=== PATIENT | female | born 1990 | race African-American/Black ===

== ENCOUNTER 2019-03-28 17:40 | Inpatient (IN) | payer OTHER ==
[2019-03-28 19:03] VITALS: BMI 29.1
[2019-03-28 19:41] LABS: BASO % 0.1 % (0-2.0); EOS % 0.8 % (0-4.5); HEMATOCRIT 37.6 % (32.4-45.2); HEMOGLOBIN 12.7 GM/dL (10.7-15.3); LYMPH % 18.9 % (8-40); MCH 32.1 pg (25.7-33.7); MCHC 33.7 g/dl (32.0-36.0); MEAN CELL VOLUME 95.3 fl (80-96); MEAN PLT VOLUME 11.4 fl (7.5-11.1); MONO % 10.8 % (3.8-10.2); NEUT % 69.4 % (42.8-82.8); RBC 3.95 M/mm3 (3.60-5.2); RDW 13.9 % (11.6-15.6); WHITE BLOOD COUNT 9.6 K/mm3 (4.0-10.0)
[2019-03-28 20:00] LABS: INR 0.9 (0.83-1.09); PROTHROMBIN TIME (PATIENT) 10.6 SEC (9.7-13.0)
[2019-03-28 20:03] LABS: ACTIVATED PTT 28.1 SECONDS (25.2-36.5)
[2019-03-28 20:04] LABS: BLOOD UREA NITROGEN 11.8 mg/dL (7-18); CALCIUM 9.2 mg/dL (8.5-10.1); CREATININE 0.8 mg/dL (0.55-1.3); POTASSIUM 3.9 mmol/L (3.5-5.1)
[2019-03-28 20:50] LABS: PLATELET COUNT 181 K/MM3 (134-434)
[2019-03-28 20:51] LABS: PLATELET ESTIMATE ADEQUATE
--- NOTE | 2019-03-28 22:04 | HP ---
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: Alzheimer's, CVA, Dementia, Migraine, Multiple Sclerosis, Peripheral Neuropathy, Parkinson's, Seizure, Syncope, TIA, Vertigo, Other Cardiovascular: No: AFIB, Aneurysm, Aortic Insufficiency, Aortic Stenosis, CAD, CHF, Deep Vein Thrombosis, HTN, Hyperlipdemia, NV, Mitral Insufficiency, Mitral Stenosis, Murmur, Pulmonary Hypertension, Other Pulmonary: No: Asthma, Bronchitis, Cancer, COPD, O2 Dependent, Pneumonia, Previously Intubated, Pulmonary Embolus, Pulmonary Fibrosis, Sleep Apnea, Other Gastrointestinal: No: Ascites, Cancer, Constipation, Crohn's Disease, Diverticulitis, Diverticulosis, Esophageal Varices, Gastritis, GERD, GI Bleed, Hemorrhoids, Hiatal Hernia, Inflamatory Bowel Disease, Irritable Bowel Disease, Pancreatitis, Peptic Ulcer Disease, Ulcerative Colitis, Other Hepatobiliary: No: Cirrhosis, Cholelithiasis, Cholecystitis, Choledocholithiasis , Hepatitis A, Hepatitis B, Hepatitis C, Other Renal/: No: Renal Failure, Renal Inusuff, BPH, Cancer, Hematuria, Hemodialysis , Neurogenic Bladder, Renal Calculi, UTI, Other Reproductive: No: Ectopic , Endometriosis, Fibroids, PID, Polycystic Ovary Syndrome, Postmenopausal, Other ...: 2 ...Para: 0 ...Term: 0 ...Induced : 1 ...LMP: 07/02/18 ... Weeks Gestation by Dates: 38.3 ...EDC by Dates: 04/08/19 ...EDC by Sono: 04/09/19 Heme/Onc: No: Anemia, B12 Deficiency, Bleeding Disorder, Cancer, Current Chemotherapy, Current Radiation Therapy, Hemochromatosis, Hypercoaguable State, Myeloproliferative Synd, Sickle Cell Disease, Sickle Cell Trait, Thrombocytopenia, Other Infectious Disease: No: AIDS, C-Diff, Herpes Zoster, HIV, MRSA, STD's, Tuberculosis, VREF, Other Psych: No: Addictions, Anxiety, Bipolar, Depression, Panic, Psychosis, Schizophrenia, Other Musculoskeletal: No: Bursitis, Chronic low back pain, Hemiparesis, Hemiplegia, Osteoarthritis, Paraplegia, Other Rheumatology: No: Fibromyalgia, Gout, Lupus, Rheumatoid Arthritis, Sarcoidosis, Vasculitis, Other ENT: No: Allergic Rhinitis, Sinusitis, Other Endocrine: No: Yordan's Disease, Alice's Disease, Diabetes Insipidus, Diabetes Mellitus, Hyperparathyroidism, Hyperthyroidism, Hypothyroidism, Osteopenia, SIADH, Other Dermatology: No: Basal Cell, Cellulitis, Eczema, Melanoma, Psoriasis, Squamous Cell, Other - Past Surgical History Past Surgical History: Yes: None Hx Myomectomy: No Hx Transabdominal Cerclage: No - Advance Directives Advance Directives: Yes: Living Will - Smoking History Smoking history: Never smoked Have you smoked in the past 12 months: No - Alcohol/Substance Use Hx Alcohol Use: No History of Substance Use: reports: None - Social History Usual Living Arrangement: Yes: With Parent, With Significant Other ADL: Independent History of Recent Travel: No Home Medications - Allergies Allergies/Adverse Reactions: Allergies Allergy/AdvReac Type Severity Reaction Status Date / Time No Known Allergies Allergy Verified 03/28/19 18:23 - Home Medications Home Medications: Ambulatory Orders Vitamin Tablet 1 tablet PO DAILY MDD 1 03/28/19 Family Disease History - Family Disease History Family History: Denies Review of Systems - Review of Systems Constitutional: reports: No Symptoms Eyes: reports: No Symptoms HENT: reports: No Symptoms Neck: reports: No Symptoms Cardiovascular: reports: No Symptoms Respiratory: reports: No Symptoms Gastrointestinal: reports: No Symptoms Genitourinary: reports: No Symptoms Breasts: reports: No Symptoms Reported Musculoskeletal: reports: No Symptoms Integumentary: reports: No Symptoms Neurological: reports: No Symptoms Endocrine: reports: No Symptoms Hematology/Lymphatic: reports: No Symptoms Psychiatric: reports: No Symptoms Physical Exam - Maternity Vital Signs: Vital Signs Temperature 97.9 F 03/28/19 19:00 Pulse Rate 99 H 03/28/19 19:00 Respiratory Rate 03/28/19 20:00 Blood Pressure 108/57 L 03/28/19 20:00 O2 Sat by Pulse Oximetry (%) Constitutional: Yes: Well Nourished, No Distress, Calm Eyes: Yes: WNL, Conjunctiva Clear, EOM Intact HENT: Yes: WNL, Atraumatic, Normocephalic Neck: Yes: WNL, Supple, Trachea Midline Cardiovascular: Yes: WNL, Regular Rate and Rhythm Lungs: Clear to auscultation Breast(s): Yes: WNL - Abdominal Exam/OB Fundal Height: 38 Number of Fetuses: Single Presentation: Vertex Contractions: Yes Regularity: Regular Intensity: Moderate Monitor Mode: External Heart Rate Location: [facility] - Labs Lab Results: CBC, BMP 03/28/19 19:10 03/28/19 19:10 Hemorrhage Risk Assessment - Risk Factors Risk Score: 0 Risk Level: Low Risk Problem List - Problems (1) Normal vaginal delivery Code(s): O80 - ENCOUNTER FOR FULL-TERM UNCOMPLICATED DELIVERY Assessment/Plan anticipate
[2019-03-28] MEDS ORDERED: BUTORPHANOL TARTRATE 1 MG/ML VIAL IVPB ONE (23:51)
[2019-03-28] MEDS ORDERED: PROMETHAZINE HCL 25 MG/1 ML VIAL IVPB ONE (23:51)
--- NOTE | 2019-03-28 23:53 | PN ---
Progress Note (short form) - Note Progress Note: cervix 4 to 5 cm, -1, 90%, uc q 3 to 5 min, requesting stadol for pain Problem List - Problems (1) Normal vaginal delivery Code(s): O80 - ENCOUNTER FOR FULL-TERM UNCOMPLICATED DELIVERY
[2019-03-29] MEDS: ELECTROLYTE-148 SOLN 1,000 ML IV SCH ×3 (00:15→05:00)
[2019-03-29] MEDS ORDERED: BUTORPHANOL TARTRATE 2 MG/ML VIAL ONE (00:22)
[2019-03-29] MEDS ORDERED: FENTANYL/BUPIVACAINE/NS/PF - PCEA - 50 ML DISP.SYRIN EP ONE (02:50)
[2019-03-29] MEDS ORDERED: NALOXONE HCL 0.4 MG/ML VIAL IVPUSH PRN (03:03)
[2019-03-29] MEDS ORDERED: LIDO 2%/EPI 1:200000 PRESRVFRE (20 ML SDVIAL) ONE (03:05)
[2019-03-29] MEDS ORDERED: BUPIVACAINE HCL/PF 0.25% (2.5MG/ML) 10 ML VIAL ONE (03:05)
[2019-03-29] MEDS ORDERED: FENTANYL/BUPIVACAINE/NS/PF - PCEA - 50 ML DISP.SYRIN EP SCH ×2 (03:15→05:45)
[2019-03-29] MEDS ORDERED: OXYTOCIN 20 UNITS in 0.9% NS 20 UNIT/1,000 ML INFUS.BAG IV ONE ×2 (05:06→09:24)
[2019-03-29] MEDS ORDERED: LIDOCAINE HCL 1% PRESERVATIVE FREE - 30ML VIAL ONE (05:06)
--- NOTE | 2019-03-29 07:19 | PN ---
Progress Note (short form) - Note Progress Note: comfort @ 430 am, cervix 7 cm, -1, 100% , uc q 5 m , continue laboring Problem List - Problems (1) Normal vaginal delivery Code(s): O80 - ENCOUNTER FOR FULL-TERM UNCOMPLICATED DELIVERY
--- NOTE | 2019-03-29 07:20 | PN ---
Progress Note (short form) - Note Progress Note: fully dilated, 0 station, uc q 5 m off epidural , and start pushing Problem List - Problems (1) Normal vaginal delivery Code(s): O80 - ENCOUNTER FOR FULL-TERM UNCOMPLICATED DELIVERY
[2019-03-29] MEDS ORDERED: oxyCODONE HCL 5 MG TABLET PO PRN ×2 (07:21→08:09)
[2019-03-29] MEDS ORDERED: BENZOCAINE 28 GM HEMORRHOIDAL OINTMENT TP PRN (07:21)
[2019-03-29] MEDS ORDERED: WITCH HAZEL 50% (TUCKS) 40 PAD/JAR PAD TP PRN (07:21)
[2019-03-29] MEDS ORDERED: BENZOCAINE 20% 57 GM BOTTLE TP PRN (07:21)
[2019-03-29] MEDS ORDERED: METHYLERGONOVINE MALEATE 0.2 MG/1 ML AMP IM PRN (07:21)
[2019-03-29] MEDS ORDERED: BISACODYL 10 MG SUPP.RECT RC PRN (07:21)
[2019-03-29] MEDS ORDERED: ACETAMINOPHEN 325 MG TABLET (FP) PO PRN ×2 (07:21→08:09)
[2019-03-29] MEDS ORDERED: IBUPROFEN 600 MG TABLET (FP) PO PRN ×2 (07:21→08:09)
[2019-03-29] MEDS ORDERED: OXYTOCIN 20 UNITS in 0.9% NS 20 UNIT/1,000 ML INFUS.BAG IV SCH (07:30)
--- NOTE | 2019-03-29 08:12 | PN ---
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
[2019-03-29] MEDS ORDERED: TUBERCULIN PPD 5 TU/0.1ML SYRINGE (IN PATIENT USE ONLY) ID ONE (09:00)
[2019-03-29] MEDS ORDERED: ACETAMINOPHEN 325 MG TABLET (FP) ONE (09:24)
[2019-03-30 08:14] LABS: BASO % 0.3 % (0-2.0); EOS % 1.4 % (0-4.5); HEMATOCRIT 33.3 % (32.4-45.2); LYMPH % 24.8 % (8-40); MCH 31.7 pg (25.7-33.7); MEAN CELL VOLUME 96.1 fl (80-96); MEAN PLT VOLUME 11.7 fl (7.5-11.1); MONO % 9.6 % (3.8-10.2); NEUT % 63.9 % (42.8-82.8); PLATELET COUNT 162 K/MM3 (134-434); RBC 3.47 M/mm3 (3.60-5.2); RDW 14.1 % (11.6-15.6); WHITE BLOOD COUNT 10.9 K/mm3 (4.0-10.0)
[2019-03-30] MEDS ORDERED: SENNOSIDES/DOCUSATE COMBO (SENNA PLUS) TABLET (UD) PO PRN (22:00)
[2019-03-31 09:01] VITALS: BP 97/60; PULSE 69; TEMP 98.6
--- NOTE | 2019-03-31 09:45 | PN ---
Post Progress Note - Subjective Subjective: pt is doing well Post Day: 2 Type of Delivery: Vital Signs: Vital Signs Temperature 98.6 F 03/31/19 07:45 Pulse Rate 69 03/31/19 07:45 Respiratory Rate 18 03/31/19 07:45 Blood Pressure 97/60 03/31/19 07:45 O2 Sat by Pulse Oximetry (%) 100 03/29/19 09:22 Breast Exam: Yes: Soft Uterus: Yes: Fundus Firm, Fundus below umbilicus Abdomen/GI: Yes: Abdomen soft, Passing flatus, Tolerating PO Lochia: Yes: Serosa Lochia, amount: Small Extremities: Yes: Calves non-tender Perineum: Yes: Episiotomy Activity: Ambulating - Labs Labs: CBC WBC 10.9 K/mm3 (4.0-10.0) H 03/30/19 06:00 RBC 3.47 M/mm3 (3.60-5.2) L 03/30/19 06:00 Hgb 11.0 GM/dL (10.7-15.3) 03/30/19 06:00 Hct 33.3 % (32.4-45.2) 03/30/19 06:00 MCV 96.1 fl (80-96) H 03/30/19 06:00 MCH 31.7 pg (25.7-33.7) 03/30/19 06:00 MCHC 33.0 g/dl (32.0-36.0) 03/30/19 06:00 RDW 14.1 % (11.6-15.6) 03/30/19 06:00 Plt Count 162 K/MM3 (134-434) 03/30/19 06:00 MPV 11.7 fl (7.5-11.1) H 03/30/19 06:00 Absolute Neuts (auto) 7.0 K/mm3 (1.5-8.0) 03/30/19 06:00 Neutrophils % 63.9 % (42.8-82.8) 03/30/19 06:00 Lymphocytes % 24.8 % (8-40) D 03/30/19 06:00 Monocytes % 9.6 % (3.8-10.2) 03/30/19 06:00 Eosinophils % 1.4 % (0-4.5) 03/30/19 06:00 Basophils % 0.3 % (0-2.0) 03/30/19 06:00 Nucleated RBC % 0 % (0-0) 03/30/19 06:00 Platelet Estimate Adequate 03/28/19 19:10 Platelet Comment Reviewed 03/28/19 19:10 Problem List - Problems (1) Normal vaginal delivery Code(s): O80 - ENCOUNTER FOR FULL-TERM UNCOMPLICATED DELIVERY Assessment/Plan d c pt home today
--- NOTE | 2019-03-31 09:47 | DS ---
Physical Exam-NURSE GENERAL DUTY Vital Signs: Vital Signs Temperature 98.6 F 03/31/19 07:45 Pulse Rate 69 03/31/19 07:45 Respiratory Rate 18 03/31/19 07:45 Blood Pressure 97/60 03/31/19 07:45 O2 Sat by Pulse Oximetry (%) 100 03/29/19 09:22 Constitutional: Yes: Well Nourished Eyes: Yes: WNL, Conjunctiva Clear, EOM Intact HENT: Yes: WNL, Atraumatic, Normocephalic Neck: Yes: WNL, Supple, Trachea Midline Cardiovascular: Yes: WNL, Regular Rate and Rhythm Respiratory: Yes: WNL, Regular, CTA Bilaterally Gastrointestinal: Yes: WNL, Normal Bowel Sounds, Soft ...Rectal Exam: Yes: WNL Renal/: Yes: WNL Pelvis: Yes: WNL External Genitalia: Yes: Normal Internal Exam Deferred: No Vaginal Exam: Yes: Normal Cervix: Yes: Normal Uterus: Yes: Normal Adnexa: Normal: Left, Right ....Post : Yes: Uterus firm, Uterus non-tender Breast(s): Yes: WNL Musculoskeletal: Yes: WNL Extremities: Yes: WNL Edema: Yes Edema: LUE: 1+, RUE: 1+, LLE: 1+, RLE: 1+ Integumentary: Yes: WNL Wound/Incision: Yes: Clean/Dry, Well Approximated Neurological: Yes: WNL, Alert, Oriented ...Motor Strength: WNL Psychiatric: Yes: WNL, Alert, Oriented Labs: CBC, BMP 03/30/19 06:00 03/28/19 19:10 Delivery - Delivery Vaginal Delivery: No Problems Type of Anesthesia: Epidural Episiotomy/Laceration: Midline EBL (cc): 300 Delivery, Single - Stages of Labor Date 1st Stage Initiatied: 03/28/19 Time 1st Stage Initiated: 13:00 Date 2nd Stage Initiated: 03/29/19 Time 2nd Stage Initiated: 07:15 Date of Delivery: 03/29/19 Time of Delivery: 07:44 Time Placenta Delivered: 07:55 Placenta: Yes: Spontaneous - 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
== END 2019-03-31 12:55 | disposition home or self-care (01) | DRG 560 ==
LOC: JDEL 17:40 → JLDR 17:45 → J3W 03-29 10:05
PROVIDERS: ADMIT Obstetrics & Gynecology; ATTEND Obstetrics & Gynecology
PROC: 10E0XZZ Delivery of Products of Conception, External Approach (ICD-10-PCS; principal; 2019-03-29)
PROC: 0W8NXZZ Division of Female Perineum, External Approach (ICD-10-PCS; 2019-03-29)
DX: O80 Encounter for full-term uncomplicated delivery (principal); Z3A.38 38 weeks gestation of pregnancy; Z37.0 Single live birth
CPT/HCPCS: 36415; 59409; 80048; 85025; 85610; 85730; 86593; 86850; 86900; 86901; 87389

== ENCOUNTER 2024-08-08 17:40 | Emergency (ER) | payer OTHER ==
[2024-08-08 17:47] VITALS: RESP 20; BMI 25.6
[2024-08-08] MEDS ORDERED: ALBUTEROL SO4 0.083% IH SOL 2.5 MG/3 ML VIAL.NEB. NEB PRN (18:55)
[2024-08-08] MEDS: ALBUTEROL SO4 2.5/IPRATROPIUM 0.5 INH SOL 3 ML VIAL.NEB. NEB SCH (19:00)
[2024-08-08] MEDS ORDERED: ALBUTEROL SO4 2.5/IPRATROPIUM 0.5 INH SOL 3 ML VIAL.NEB. NEB ONE ×2 (19:03→19:04)
[2024-08-08 20:17] VITALS: BP 97/53; PULSE 77; TEMP 98.3
== END 2024-08-08 20:57 | disposition home or self-care (01) ==
LOC: JER 17:40
PROC: 3E0F7GC Introduction of Other Therapeutic Substance into Respiratory Tract, Via Natural or Artificial Opening (ICD-10-PCS; principal; 2024-08-08)
DX: J45.901 Unspecified asthma with (acute) exacerbation (principal); R07.89 Other chest pain; R05.9 Cough, unspecified
CPT/HCPCS: 93005; 93010; 99284-25